=== PATIENT | female | born 1995 | race African-American/Black ===

== ENCOUNTER 2016-05-15 14:19 | Outpatient (CLI) | payer MEDICAID ==
[2016-05-15] MEDS ORDERED: LANSOPRAZOLE 15 MG TAB.RAP.DR PO ONE ×2 (15:03→15:15)
[2016-05-15] MEDS ORDERED: LANSOPRAZOLE 30 MG TAB.RAP.DR ONE (15:06)
--- NOTE | 2016-05-15 16:00 | L&D Flow Sheet ---
LD Flowsheet Datetime Report Generated by CPN: 05/15/2016 16:00 Datetime: 05/15/2016 15:44 I/O Interventions: Up to BR (Jaqueline Fredrick, RN) Datetime: 05/15/2016 15:41 Vital Signs NBP Sys/Tresa/Mean (mmHg): 98 (QS system process) : 53 (QS system process) : 71 (QS system process) Pulse: 85 (QS system process) Datetime: 05/15/2016 15:32 Patient Position/Activity: Left Extreme; Low Fowlers (Jaqueline Fredrick, RN) Datetime: 05/15/2016 15:30 Uterine Activity Monitor Mode: External; Palpation (Jaqueline Fredrick, RN) Frequency (min): x2 (Jaqueline Fredrick, RN) Quality: Mild (Jaqueline Fredrick, RN) Duration (sec): 40 (Jaqueline Fredrick, RN) Duration Criteria: Less than Two 120 Second Contractions (Jaqueline Fredrick, RN) Pattern: Normal: <= 5 Contractions in 10 Minutes (Jaqueline Fredrick, RN) Resting Tone (Palpate): Relaxed (Jaqueline Fredrick, RN) Contraction Comments: irritability (Jaqueline Fredrick, RN) Assessment A Monitor Mode: External US (Jaqueline Fredrick, RN) FHR Baseline Rate : 135 (Jaqueline Fredrick, RN) Variability: Moderate 6-25 bpm (Jaqueline Fredrick, RN) Accelerations: 10X10 (Jaqueline Fredrick, RN) Decelerations: None (Jaqueline Fredrick, RN) Datetime: 05/15/2016 15:25 Vital Signs NBP Sys/Tresa/Mean (mmHg): 99 (QS system process) : 59 (QS system process) : 74 (QS system process) Pulse: 79 (QS system process) Datetime: 05/15/2016 15:17 Medications Medication Comments: Prevacid 30 mg ODT x1 now per Dr. Neilsen order (Jaqueline Fredrick, RN) Datetime: 05/15/2016 15:16 Communication Communication Comments: Dr. Neilsen at bedside assessing patient (Jaqueline Fredrick, RN) Datetime: 05/15/2016 15:11 Vital Signs NBP Sys/Tresa/Mean (mmHg): 106 (QS system process) : 64 (QS system process) : 80 (QS system process) Pulse: 74 (QS system process) Datetime: 05/15/2016 15:10 Vital Signs NBP Sys/Tresa/Mean (mmHg): 102 (QS system process) : 62 (QS system process) : 75 (QS system process) Pulse: 80 (QS system process) Patient Care IV/Blood Work: IV Started; IV Bolus Started (Jaqueline Fredrick, RN) Datetime: 05/15/2016 15:00 Uterine Activity Monitor Mode: External; Palpation (Jaqueline Alcala, RN) Frequency (min): x1 (Jaqueline Alcala, RN) Quality: Mild (Jaqueline Alcala, RN) Duration (sec): 70 (Jaqueline Alcala, RN) Duration Criteria: Less than Two 120 Second Contractions (Jaqueline Alcala, RN) Pattern: Normal: <= 5 Contractions in 10 Minutes (Jaqueline Alcala, RN) Resting Tone (Palpate): Relaxed (Jaqueline Alcala, RN) Contraction Comments: irritability (Jaqueline Alcala, RN) Assessment A Monitor Mode: External US (Jaqueline Alcala, RN) FHR Baseline Rate : 140 (Jaqueline Alcala, RN) Variability: Moderate 6-25 bpm (Jaqueline Alcala, RN) Accelerations: None (Jaqueline Alcala, RN) Decelerations: None (Jaqueline Alcala, RN) Communication Communication Comments: Orders received from DrRoger Lopes for 1 L LR fluid bolus, CBC, CMP, Amylase, and Lipase, Prevacid 20 mg ODT x1 now (Jaqueline Alcala, RN) Datetime: 05/15/2016 14:55 Vital Signs NBP Sys/Tresa/Mean (mmHg): 97 (QS system process) : 61 (QS system process) : 74 (QS system process) Pulse: 81 (QS system process) Datetime: 05/15/2016 14:51 Vaginal Exam Dilatation (cm): 0.5 (Jaqueline Alcala RN) Effacement (%): 50 (Jaqueline Alcala RN) Exam by: Ayan Paris CNM (Jaqueline Alcala RN) Vaginal Bleeding: None (Jaqueline Alcala RN) Vaginal Exam Comments: ballotable (Jaqueline Alcala RN) Datetime: 05/15/2016 14:49 Communication Communication Comments: A. Emmel, CNM at bedside assessing patient (Jaqueline Fredrick, RN) Datetime: 05/15/2016 14:40 Vital Signs NBP Sys/Tresa/Mean (mmHg): 92 (QS system process) : 62 (QS system process) : 72 (QS system process) Pulse: 90 (QS system process) Datetime: 05/15/2016 14:35 Assessment A Monitor Mode: External US (Jaqueline Alcala, MARA) Pain Pain Scale: 0 (Annotations: patient states pain is 0 out of 5 until ripping sensation occurs, then pain is 3/5) (Jaqueline Alcala RN) Pain Presence: Intermittent (Jaqueline Alcala RN) Pain Type: Sharp (Jaqueline Alcala RN) Pain Location: Abdomen (Jaqueline Alcala RN) Pain Goal: 1 (Jaqueline Alcala RN) Pain Relief Measures: Comfort Measures (Jaqueline Alcala RN) Vaginal Bleeding: None (Jaqueline Alcala RN) Maternal Assessment Level of Consciousness: Fully Conscious (Jaqueline Alcala RN) DTR's/Clonus: DTRs 2+; No Clonus (Jaqueline Alcala RN) Headache: Denies (Jaqueline Alcala RN) Breath Sounds, Left: Clear and Equal (Jaqueline Alcala RN) Breath Sounds, Right: Clear and Equal (Jaqueline Alcala RN) Nausea/Vomiting: Denies (Jaqueline Alcala RN) RUQ Epigastric Pain: Denies (Jaqueline Alcala RN) Oxygen Method: Room Air (Jaqueline Alcala RN) Patient Position/Activity: Left Tilt (Jaqueline Alcala RN) I/O Interventions: Clear Liquids Given (Jaqueline Alcala RN) Teaching Instructional Method: Verbal (Jaqueline Alcala RN) Plan of Care: Plan of Care Discussed (Jaqueline Alcala RN) Unit Routine: [place] to Room; Call Reina; Bed (Jaqueline Alcala RN) Related: Common Discomforts of (Jaqueline Alcala RN)
[2016-05-15 16:20] LABS: APPEARANCE,URINE CLEAR; BILIRUBIN,URINE NEGATIVE (NEGATIVE); GLUCOSE, URINE NEGATIVE (NEGATIVE); KETONES,URINE NEGATIVE (NEGATIVE); LEUKOCYTE ESTERASE,URINE SMALL (NEGATIVE); NITRITE,URINE NEGATIVE (NEGATIVE); PROTEIN,URINE NEGATIVE (NEGATIVE); URINE SPECIFIC GRAVITY 1.005; UROBILINOGEN,URINE NEGATIVE mg/dL (<2.0)
[2016-05-15 16:42] LABS: URINE BARBITURATES SCREEN NEGATIVE; URINE METHADONE SCREEN NEGATIVE; URINE PHENCYCLIDINE SCREEN NEGATIVE
[2016-05-15 16:49] LABS: ABSOLUTE BASOPHILS # (AUTO) 0.1 10^3/uL (0.0-0.2); ABSOLUTE EOSINOPHILS # (AUTO) 0.2 10^3/uL (0.0-0.6); ABSOLUTE LYMPHOCYTES (AUTO) 1.8 10^3/uL (0.5-4.7); ABSOLUTE MONOCYTES (AUTO) 0.7 10^3/uL (0.1-1.4); ABSOLUTE NEUT (AUTO) 10.2 10^3/uL (1.7-8.2); BASOPHILS % (AUTO) 0.4 % (0-2); EOSINOPHILS % (AUTO) 1.4 % (0-6); HEMATOCRIT 32.4 % (36.0-47.0); HEMOGLOBIN 10.7 g/dL (12.0-15.5); HGB HCT DIFFERENCE -0.3; LYMPHOCYTES % (AUTO) 13.6 % (13-45); MEAN CORPUSCULAR HEMOGLOBIN 29.2 pg (27.0-33.4); MEAN CORPUSCULAR VOLUME 89 fl (80-97); MONOCYTES % (AUTO) 5.7 % (3-13); RED BLOOD COUNT 3.66 10^6/uL (3.72-5.28); RED CELL DISTRIBUTION WIDTH 14.6 % (11.5-14.0); SEGMENTED NEUTROPHILS % (AUTO) 78.9 % (42-78)
--- NOTE | 2016-05-15 17:14 | L&D Progress Notes ---
PROGRESS NOTES Datetime Report Generated by CPN: 05/15/2016 17:14 PROGRESS NOTE Comment: 20 yo presents with left sided abdominal pain EDC 06/07/16 NKDA Phx: unremarkable Psx: previous c/section d/t distress cervix: ft/50/ ballotable ( soft0 no suprapubic tenderness CBC with diff, CMP, lipase and amylase 1 liter of LR bolus cat 1/ +accelerations Prevacid 30 mg odt reviewed with Dr. Lopes SIGNATURE SIGNATURE: [id number] Assignment: Indiana Lopes MD Signature: with User ID: [email or web address] : with User ID: [email or web address]
--- NOTE | 2016-05-15 17:17 | L&D Progress Notes ---
PROGRESS NOTES Datetime Report Generated by CPN: 05/15/2016 17:17 PROGRESS NOTE Vital Signs : Reviewed; Within Normal Limits Comment: denies nausea/ vomiting reports pain x several weeks with worsening pain today now, intermittent FETUS A Monitoring: External US Decelerations: None FETUS C SIGNATURE: [id number] Assignment: Indiana Lopes MD Signature: with User ID: [email or web address] : with User ID: [email or web address]
[2016-05-15 17:19] LABS: ALANINE AMINOTRANSFERASE 22 U/L (9-52); ALBUMIN 2.8 g/dL (3.5-5.0); ALKALINE PHOSPHATASE 129 U/L (38-126); AMYLASE 63 U/L (30-110); ANION GAP 9 (5-19); ASPARTATE AMINO TRANSFERASE 16 U/L (14-36); BILIRUBIN,TOTAL 0.2 mg/dL (0.2-1.3); BLOOD UREA NITROGEN 11 mg/dL (7-20); CALCIUM 8.7 mg/dL (8.4-10.2); CARBON DIOXIDE 23 mmol/L (22-30); CHLORIDE 106 mmol/L (98-107); GLUCOSE 77 mg/dL (75-110); POTASSIUM 3.8 mmol/L (3.6-5.0); SODIUM 138.3 mmol/L (137-145); TOTAL PROTEIN 5.6 g/dL (6.3-8.2)
--- NOTE | 2016-05-17 11:02 | Non Stress Test Report ---
Non Stress Test Datetime Report Generated by CPN: 05/17/2016 11:01 DEMOGRAPHIC EGA NST: 36.5 INDICATION Indication for Study: Ordered by Provider Indication for Study: Ordered by Provider MONITORING Monitor Explained: Monitor Explained; Test Explained; Patient Verbalized Understanding Time on Monitor: 05/15/2016 14:33 Time off Monitor: 05/15/2016 17:26 NST Duration: 173 NST INTERVENTIONS NST Interventions: PO Hydration; Reposition Patient NST Interventions: PO Hydration; Reposition Patient Physician Notified NST: ARoger Cecileel, CNM BABY A: [id number] BABY A Movement : Present Contraction Frequency : irregular FHR Baseline : 130 Accelerations : 15X15 Decelerations : None Variability : Moderate 6-25bpm NST Review: Meets Criteria for Reactive NST NST Review and Verified By : Uma Nieto rN NST Results: Reactive NST REPORT Report Trigger: Send Report
--- NOTE | 2016-05-21 16:07 | L&D General Admission ---
General Admit Datetime Report Generated by CPN: 05/21/2016 16:07 Patient Age: 20 (03/22/2016 18:00:QS system process) EDC: 06/07/2016 00:00 (03/22/2016 18:05:JEREMY Mercer) : 2 (03/22/2016 18:05:JEREMY Mercer) Para: 1 (04/09/2016 13:00:JEREMY Ortiz) Para: 1 (03/22/2016 20:21:Angela Jacobs RN) Para: 1 (03/22/2016 18:05:JEREMY Mercer) Term: 1 (03/22/2016 18:05:JEREMY Mercer) : 0 (03/22/2016 18:05:JEREMY Mercer) Spontaneous Abortions: 0 (03/22/2016 18:05:JEREMY Mercer) Induced Abortions: 0 (03/22/2016 18:05:JEREMY Mercer) Livin (03/22/2016 18:05:JEREMY Mercer) Cesareans: 1 (03/22/2016 18:05:JEREMY Mercer) VBACs: 0 (03/22/2016 18:05:JEREMY Mercer) Ectopic: 0 (03/22/2016 18:05:JEREMY Mercer) Multiple Births: 0 (03/22/2016 18:05:JEREMY Mercer) Baby, Number in Womb: 1 (05/15/2016 17:43:Jaqueline Alcala RN) Baby, Number in Womb: 1 (04/09/2016 13:00:JEREMY Ortiz) Baby, Number in Womb: 1 (03/22/2016 20:21:Angela Jacobs RN) Baby, Number in Womb: 1 (03/22/2016 18:05:JEREMY Mercer) Primary State'S Attorney: [facility] (03/22/2016 18:05:JEREMY Mercer) Adequate Care: Yes (03/22/2016 18:05:JEREMY Rachel) Medication Allergy: No (03/22/2016 18:05:JEREMY Rachel) Medication Allergies: No Known Allergies (05/15/2016) (05/15/2016 17:39:QS system process) Medication Allergies: No Known Allergies (04/19/2016) (05/15/2016 14:20:QS system process) Medication Allergies: No Known Allergies (03/22/2016) (03/22/2016 18:52:QS system process) Latex Allergy: No Latex Allergies (03/22/2016 18:05:Jaqueline Alcala RN) Food Allergies: n/a (03/22/2016 18:05:Jaqueline Alcala RN) Environmental Allergies: n/a (03/22/2016 18:05:Jaqueline Alcala RN) Primary Language: Comoran (03/22/2016 18:05:JEREMY Rachel) Medical Tx Preferred Language: Comoran (03/22/2016 18:05:Angela Jacobs RN) Communication Barrier(s): None (03/22/2016 18:05:Angela Jacobs RN) Address: [address] [place] [id number] (03/22/2016 18:00:QS system process) Zipcode: [id number] (03/22/2016 18:00:QS system process) Home (03/22/2016 18:00:QS system process) Work (05/15/2016 14:20:QS system process) SSN: [id number] (03/22/2016 18:00:QS system process) Next of Kin Name: FELICIANO FERNANDEZ (03/22/2016 18:00:QS system process) Next of Kin (03/22/2016 18:00:QS system process) Next of Kin Relationship: OR (03/22/2016 18:00:QS system process) Date of : 1995 (03/22/2016 18:00:QS system process) Marital Status: Legally (03/22/2016 18:00:QS system process) Sex: Female (03/22/2016 18:00:QS system process) Race: (03/22/2016 18:00:QS system process) Ethnicity: Non- or (03/22/2016 18:00:QS system process) Catholic: Jain (03/22/2016 18:00:QS system process) Alcohol: No (03/22/2016 18:05:JEREMY Rachel) Cigarettes: Never Smoker. [id number] (03/22/2016 18:05:JEREMY Rahcel) Marijuana: No (03/22/2016 18:05:JEREMY Rachel) Cocaine: No (03/22/2016 18:05:JEREMY Rachel) Other Illicit Drugs: No (03/22/2016 18:05:JEREMY Rachel) Pneumococcal Vaccine: No (03/22/2016 18:05:JEREMY Rachel) Tetanus Vaccine: Yes (03/22/2016 18:05:JEREMY Rachel) Tdap Vaccine: Yes (03/22/2016 18:05:JEREMY Rachel) Hepatitis B Vaccine: Yes (03/22/2016 18:05:JEREMY Rachel) Circumcision: N/A (03/22/2016 18:05:Jaqueline Alcala RN) Classes Attended: No (03/22/2016 18:05:Jaqueline Alcala RN) Tubal Ligation: No (03/22/2016 18:05:Jaqueline Alcala RN) Tubal Authorization Signed: N/A (03/22/2016 18:05:Jaqueline Alcala RN) Consent: N/A (03/22/2016 18:05:Jaqueline Alcala RN) Consent Signed: N/A (03/22/2016 18:05:Jaqueline Alcala RN) Pain Management Plans: Spinal (03/22/2016 18:05:Jaqueline Alcala RN) Support Person: Feliciano Fernandez (03/22/2016 18:05:Jaqueline Alcala RN) Support Person Relationship: Significant Other (03/22/2016 18:05:Jaqueline Alcala RN) Cultural/Spritual Practice: No (03/22/2016 18:05:Jaqueline Alcala RN) Spir/Cult Dietary Needs: No (03/22/2016 18:05:Jaqueline Alcala RN) Living Arrangements: Apartment (03/22/2016 18:05:Jaqueline Alcala RN) Adequate Access to:: Electric; Heat; Refrigeration; Plumbing/Running water; Phone; Transportation (03/22/2016 18:05:Jaqueline Alcala RN) WIC Program: No (03/22/2016 18:05:Jaqueline Alcala RN) Currently Using Commun Resources: N/A (03/22/2016 18:05:Jaqueline Alcala RN) Outside Agency/[employer] Developer: N/A (03/22/2016 18:05:Jaqueline Alcala RN) Car Seat for Discharge: No (03/22/2016 18:05:Jaqueline Alcala RN) Adoption Requested: No (03/22/2016 18:05:Jaqueline Alcala RN) Pt Contact w/ Post : N/A (03/22/2016 18:05:Jaqueline Alcala RN) Blood Type: A Positive (03/22/2016 18:05:JEREMY Mercer) Antibody Screen: negative (03/22/2016 18:05:JEREMY Mercer) Rho(G) this : Not Applicable (03/22/2016 18:05:Angela Jacobs RN) Hemoglobin: 10.7 L (05/15/2016 16:38:QS system process) Hematocrit: 32.4 L (05/15/2016 16:38:QS system process) MCV: 89 (05/15/2016 16:38:QS system process) Gonorrhea: Negative (03/22/2016 18:05:JEREMY Mercer) Chlamydia: Negative (03/22/2016 18:05:JEREMY Mercer) RPR/VDRL: Reactive (03/22/2016 18:05:JEREMY Mercer) HIV Results: negative (03/22/2016 18:05:JEREMY Mercer) Hepatitis B: Negative (03/22/2016 18:05:JEREMY Mercer) Rubella: Immune (03/22/2016 18:05:JEREMY Mercer)
--- NOTE | 2016-05-21 16:07 | Antepartum Discharge Summary ---
Antepartum DC Datetime Report Generated by CPN: 05/21/2016 16:06 Diet: Regular (05/15/2016 17:43:Jaqueline Alcala RN) Activity: Normal Activity (05/15/2016 17:43:Jaqueline Alcala RN) Instructions Given To: patient and significant other (05/15/2016 17:43:Jaqueline Alcala RN) Instructions Understood: Patient Verbalized Understanding; Support Person Verbalized Understanding (05/15/2016 17:43:Jaqueline Alcala RN) Referrals: None (05/15/2016 17:43:Jaqueline Alcala RN) Educational Materials- Other: kick counts care notes reviewed with patient, patient verbalized understanding (05/15/2016 17:43:Jaqueline Alcala RN) Discharged AMA: No (05/15/2016 17:43:Jaqueline Alcala RN) Discharge Date/Time: 05/15/2016 17:40 (05/15/2016 17:43:Jaqueline Alcala RN) Discharged To: Home (05/15/2016 17:43:Jaqueline Alcala RN) Discharge Provider Name: Ayan Paris CNM (05/15/2016 17:43:Jaqueline Alcala RN) Accompanied By: significant other (05/15/2016 17:43:Jaqueline Alcala RN) Discharge Method: Ambulatory (05/15/2016 17:43:Jaqueline Alcala RN) Condition: Stable (05/15/2016 17:43:Jaqueline Alcaal RN) Follow Up With: [facility] (05/15/2016 17:43:Jaqueline Alcala RN) Follow Up On: As Scheduled (05/15/2016 17:43:Jaqueline Alcala RN) Follow Up Phone Number: [facility] - (05/15/2016 17:43:Jaqueline Alcala RN) Contractions: Contractions or cramps become more frequent than 8 in one hour or 4 in 20 minutes; Regular painful contractions every 5 minutes or less for one hour. Time your contractions from the beginning of one to the beginning of the next (05/15/2016 17:43:Jaqueline Alcala RN) Pressure: Pressure in your vagina or lower abdomen that may feel like the baby is pushing down (05/15/2016 17:43:Jaqueline Alcala RN) Period Like Cramps: Period-like cramps or low dull backache that may come and go (05/15/2016 17:43:Jaqueline Alcala RN) Cramps/Diarrhea: Abdominal cramps that may be accompanied by diarrhea (05/15/2016 17:43:Jaqueline Alcala RN) Gush of Fluid/Blood: Gush of fluid or blood from your vagina (it is normal to have spotting after vaginal exam or intercourse) (05/15/2016 17:43:Jaqueline Alcala RN) Vaginal Discharge: Change in the type or amount of vaginal discharge (05/15/2016 17:43:Jaqueline Alcala RN) Decreased Movement: Your baby is not moving as much as usual- 4 movements in 1 hour after drinking and resting on side (05/15/2016 17:43:Jaqueline Alcala RN) Temperature: Temperature greater than 100.0(F) orally (05/15/2016 17:43:Jaqueline Alcala RN) Hypertension Signs/Symptoms: Severe headache which is not relieved 30 minutes after taking Tylenol(Acetaminophen); Blurry vision or spots before your eyes; Severe heartburn or pain on the upper right side of your abdomen that is not relieved by an antacid; Increased swelling in your face, hands or feet (05/15/2016 17:43:Jaqueline Alcala RN) Urinary Output: Decreased urinary output or dark colored urine (05/15/2016 17:43:Jaquelnie Alcala RN)
--- NOTE | 2016-05-21 16:07 | L&D Current Admission ---
Current Admit Datetime Report Generated by [facility]: 05/21/2016 16:07 Chief Complaint: patient states she had a ripping sensation in LUQ of abdomen starting at _12 this afternoon (05/15/2016 14:35:Jaqueline Alcala RN)
--- NOTE | 2016-05-21 16:08 | L&D Discharge Summary ---
OB Discharge Summary Datetime Report Generated by CPN: 05/21/2016 16:08 DISCHARGE DIAGNOSIS Diagnosis/Symptoms: Decreased Movement; Reassuring Surveillance - Annotate Details Diagnoses/Symptoms Other: IUP @ 37.0 weeks, BPP 8/10 (Annotations: Data stored by [facility] on behalf of user) Treatment/Procedures Other: Keflex 1000 mg given po Gestation: 37.0 Number of Babies in Womb: 1 Parity: 1 DIET/ACTIVITY/RESTRICTIONS Diet: Regular Activity: Normal Activity TEACHING/INSTRUCTIONS/REFERRALS Instructions Given To: patient and significant other Instructions Understood: Patient Verbalized Understanding; Support Person Verbalized Understanding Referrals: None Educational Materials- Other: kick counts care notes reviewed with patient, patient verbalized understanding DISCHARGE INFORMATION Discharged AMA: No Discharge Date/Time: 05/15/2016 17:40 Discharged To: Home Discharge Provider Name: A. Emmel, CNM Accompanied By: significant other Discharge Method: Ambulatory Condition: Stable FOLLOW UP INFORMATION Follow Up With: [facility] Follow Up On: As Scheduled Follow Up Phone Number: [facility] - GENERAL INSTR-CALL PROVIDER IF: Contractions: Contractions or cramps become more frequent than 8 in one hour or 4 in 20 minutes; Regular painful contractions every 5 minutes or less for one hour. Time your contractions from the beginning of one to the beginning of the next Pressure: Pressure in your vagina or lower abdomen that may feel like the baby is pushing down Period Like Cramps: Period-like cramps or low dull backache that may come and go Cramps/Diarrhea: Abdominal cramps that may be accompanied by diarrhea Gush of Fluid/Blood: Gush of fluid or blood from your vagina (it is normal to have spotting after vaginal exam or intercourse) Vaginal Discharge: Change in the type or amount of vaginal discharge Decreased Movement: Your baby is not moving as much as usual- 4 movements in 1 hour after drinking and resting on side Temperature: Temperature greater than 100.0(F) orally
== END 2016-05-15 17:41 | disposition home or self-care (01) ==
LOC: LC 14:19
PROVIDERS: ATTEND Obstetrics & Gynecology
PROC: 4A1HXCZ Monitoring of Products of Conception, Cardiac Rate, External Approach (ICD-10-PCS; principal; 2016-05-15)
DX: Z34.93 Encounter for supervision of normal pregnancy, unspecified, third trimester (principal); Z3A.36 36 weeks gestation of pregnancy
CPT/HCPCS: 36415; 59025; 80053; 80307; 81005; 82150; 83690; 85025

== ENCOUNTER 2016-05-17 10:59 | Outpatient (CLI) | payer MEDICAID ==
--- NOTE | 2016-05-17 12:01 | L&D Flow Sheet ---
LD Flowsheet Datetime Report Generated by CPN: 05/17/2016 12:00 Datetime: 05/17/2016 11:12 I/O Interventions: Popsicle (Nola Heladio, RNC) Datetime: 05/17/2016 11:11 Patient Care Patient Position/Activity: Right Lateral (Nola Heladio, RNC) Datetime: 05/17/2016 11:10 Patient Care Patient Position/Activity: Left Lateral (Nola Heladio, RNC) Datetime: 05/17/2016 11:07 Vital Signs NBP Sys/Tresa/Mean (mmHg): 96 (QS system process) : 51 (QS system process) : 68 (QS system process) Pulse: 87 (QS system process) Respirations: 17 (Nola Leija RNC) Temperature (F): 98.0 (JEREMY Rachel) Temperature (C): 36.7 (QS system process) Datetime: 05/17/2016 11:01 Patient Care Patient Position/Activity: Right Lateral (JEREMY Rachel)
--- NOTE | 2016-05-21 16:07 | L&D Flow Sheet ---
LD Flowsheet Datetime Report Generated by CPN: 05/21/2016 16:07 Datetime: 05/15/2016 17:30 Communication Comments: A. Emmel at bedside reviewing labs with patient. Order received to discharge patient home. Patient instructed to rest at home and keep appointment at [facility] (Jaqueline Fredrick, RN) Datetime: 05/15/2016 17:26 Communication Comments: monitors removed for patient discharge (Jaqueline Fredrick, RN) Datetime: 05/15/2016 17:25 NBP Sys/Tresa/Mean (mmHg): 95 (QS system process) : 54 (QS system process) : 66 (QS system process) Pulse: 88 (QS system process) Datetime: 05/15/2016 17:07 Communication Comments: Order received from A. Emmel, [facility] to d/c heart rate monitor (Jaqueline Alcala, RN) Datetime: 05/15/2016 16:55 NBP Sys/Tresa/Mean (mmHg): 83 (QS system process) : 52 (QS system process) : 63 (QS system process) Pulse: 84 (QS system process) Datetime: 05/15/2016 16:45 Monitor Mode: External; Palpation (Jaqueline Alcala, RN) Frequency (min): none (Jaqueline Alcala, RN) Resting Tone (Palpate): Relaxed (Jaqueline Alcala, RN) Monitor Mode: External US (Jaqueline Alcala, RN) FHR Baseline Rate : 140 (Jaqueline Alcala, RN) FHR Baseline Changes: No Baseline Change (Jaqueline Fredrick, RN) Variability: Moderate 6-25 bpm (Jaqueline Fredrick, RN) Accelerations: 15X15 (Jaqueline Fredrick, RN) Decelerations: None (Jaqueline Fredrick, RN) Datetime: 05/15/2016 16:40 NBP Sys/Tresa/Mean (mmHg): 89 (QS system process) : 53 (QS system process) : 66 (QS system process) Pulse: 93 (QS system process) Datetime: 05/15/2016 16:25 NBP Sys/Tresa/Mean (mmHg): 89 (QS system process) : 53 (QS system process) : 66 (QS system process) Pulse: 87 (QS system process) Datetime: 05/15/2016 16:24 I/O Interventions: Popsicle (Jaqueline Alcala RN) Datetime: 05/15/2016 16:15 Monitor Mode: External; Palpation (Jaqueline Alcala RN) Frequency (min): none (Jaqueline Alcala RN) Resting Tone (Palpate): Relaxed (Jaqueline Alcala RN) Monitor Mode: External US (Jaqueline Alcala RN) FHR Baseline Rate : 130 (Jaqueline Fredrick, RN) FHR Baseline Changes: No Baseline Change (Jaqueline Alcala, RN) Variability: Moderate 6-25 bpm (Jaqueline Alcala, RN) Accelerations: None (Jaqueline Alcala, RN) Decelerations: None (Jaqueline Alcala RN) Datetime: 05/15/2016 16:10 NBP Sys/Tresa/Mean (mmHg): 93 (QS system process) : 53 (QS system process) : 68 (QS system process) Pulse: 76 (QS system process) Datetime: 05/15/2016 16:02 NBP Sys/Tresa/Mean (mmHg): 90 (QS system process) : 50 (QS system process) : 63 (QS system process) Pulse: 76 (QS system process) Datetime: 05/15/2016 16:00 Comments: patient off monitor in bathroom (Jaqueline Fredrick, RN) Datetime: 05/15/2016 15:45 Monitor Mode: External; Palpation (Jaqueline Fredrick, RN) Frequency (min): irritability (Jaqueline Fredrick, RN) Quality: Mild (Jaqueline Fredrick, RN) Duration Criteria: Less than Two 120 Second Contractions (Jaqueline Fredrick, RN) Pattern: Normal: <= 5 Contractions in 10 Minutes (Jaqueline Fredrick, RN) Resting Tone (Palpate): Relaxed (Jaqueline Fredrick, RN) Monitor Mode: External US (Jaqueline Fredrick, RN) FHR Baseline Rate : 130 (Jaqueline Fredrick, RN) Variability: Moderate 6-25 bpm (Jaqueline Fredrick, RN) Accelerations: 15X15 (Jaqueline Fredrick, RN) Decelerations: None (Jaqueline Fredrick, RN) Datetime: 05/15/2016 15:44 I/O Interventions: Up to BR (Jaqueline Fredrick, RN) Datetime: 05/15/2016 15:41 NBP Sys/Tresa/Mean (mmHg): 98 (QS system process) : 53 (QS system process) : 71 (QS system process) Pulse: 85 (QS system process) Datetime: 05/15/2016 15:32 Patient Position/Activity: Left Extreme; Low Fowlers (Jaqueline Fredrick, RN) Datetime: 05/15/2016 15:30 Monitor Mode: External; Palpation (Jaqueline Alcala, RN) Frequency (min): x2 (Jaqueline Alcala, RN) Quality: Mild (Jaqueline Alcala, RN) Duration (sec): 40 (Jaqueline Alcala, RN) Duration Criteria: Less than Two 120 Second Contractions (Jaqueline Alcala, RN) Pattern: Normal: <= 5 Contractions in 10 Minutes (Jaqueline Alcala, RN) Resting Tone (Palpate): Relaxed (Jaqueline Alcala, RN) Contraction Comments: irritability (Jaqueline Alcala, RN) Monitor Mode: External US (Jaqueline Alcala, RN) FHR Baseline Rate : 135 (Jaqueline Alcala, RN) Variability: Moderate 6-25 bpm (Jaqueline Alcala, RN) Accelerations: 10X10 (Jaqueline Alcala, RN) Decelerations: None (Jaqueline Alcala, RN) Datetime: 05/15/2016 15:25 NBP Sys/Tresa/Mean (mmHg): 99 (QS system process) : 59 (QS system process) : 74 (QS system process) Pulse: 79 (QS system process) Datetime: 05/15/2016 15:17 Medication Comments: Prevacid 30 mg ODT x1 now per Dr. Neilsen order (Jaqueline Alcala, RN) Datetime: 05/15/2016 15:16 Communication Comments: Dr. Neilsen at bedside assessing patient (Jaqueline Alcala, RN) Datetime: 05/15/2016 15:11 NBP Sys/Tresa/Mean (mmHg): 106 (QS system process) : 64 (QS system process) : 80 (QS system process) Pulse: 74 (QS system process) Datetime: 05/15/2016 15:10 NBP Sys/Tresa/Mean (mmHg): 102 (QS system process) : 62 (QS system process) : 75 (QS system process) Pulse: 80 (QS system process) IV/Blood Work: IV Started; IV Bolus Started (Jaqueline Alcala RN) Datetime: 05/15/2016 15:00 Monitor Mode: External; Palpation (Jaqueline Alcala RN) Frequency (min): x1 (Jaqueline Alcala RN) Quality: Mild (Jaqueline Alcala RN) Duration (sec): 70 (Jaqueline Alcala RN) Duration Criteria: Less than Two 120 Second Contractions (Jaqueline Alcala RN) Pattern: Normal: <= 5 Contractions in 10 Minutes (Jaqueline Alcala RN) Resting Tone (Palpate): Relaxed (Jaqueline Alcala RN) Contraction Comments: irritability (Jaqueline Alcala RN) Monitor Mode: External US (Jaqueline Alcala RN) FHR Baseline Rate : 140 (Jaqueline Alcala RN) Variability: Moderate 6-25 bpm (Jaqueline Alcala RN) Accelerations: None (Jaqueline Alcala RN) Decelerations: None (Jaqueline Alcala RN) Communication Comments: Orders received from Dr. Lopes for 1 L LR fluid bolus, CBC, CMP, Amylase, and Lipase, Prevacid 20 mg ODT x1 now (Jaqueline Alcala RN) Datetime: 05/15/2016 14:55 NBP Sys/Tresa/Mean (mmHg): 97 (QS system process) : 61 (QS system process) : 74 (QS system process) Pulse: 81 (QS system process) Datetime: 05/15/2016 14:51 Dilatation (cm): 0.5 (Jaqueline Alcala RN) Effacement (%): 50 (Jaqueline Alcala RN) Exam by: Ayan Paris CNM (Jaqueline Alcala RN) Vaginal Bleeding: None (Jaqueline Alcala RN) Vaginal Exam Comments: ballotable (Jaqueline Alcala RN) Datetime: 05/15/2016 14:49 Communication Comments: ARoger Paris CNM at bedside assessing patient (Jaqueline Alcala RN) Datetime: 05/15/2016 14:40 NBP Sys/Tresa/Mean (mmHg): 92 (QS system process) : 62 (QS system process) : 72 (QS system process) Pulse: 90 (QS system process) Datetime: 05/15/2016 14:35 Monitor Mode: External US (Jaqueline Alcala RN) Pain Scale: 0 (Annotations: patient states pain is 0 out of 5 until ripping sensation occurs, then pain is 3/5) (Jaqueline Alcala RN) Pain Presence: Intermittent (Jaqueline Alcala RN) Pain Type: Sharp (Jaqueline Alcala RN) Pain Location: Abdomen (Jaqueline Alcala RN) Pain Goal: 1 (Jaqueline Alcala RN) Pain Relief Measures: Comfort Measures (Jaqueline Alcala RN) Vaginal Bleeding: None (Jaqueline Alcala RN) Level of Consciousness: Fully Conscious (Jaqueline Alcala RN) DTR's/Clonus: DTRs 2+; No Clonus (Jaqueline Alcala RN) Headache: Denies (Jaqueline Alcala RN) Breath Sounds, Left: Clear and Equal (Jaqueline Alcala RN) Breath Sounds, Right: Clear and Equal (Jaqueline Alcala RN) Nausea/Vomiting: Denies (Jaqueline Alcala RN) RUQ Epigastric Pain: Denies (Jaqueline Alcala, RN) Oxygen Method: Room Air (Jaqueline Alcala, RN) Patient Position/Activity: Left Tilt (Jaqueline Alcala, RN) I/O Interventions: Clear Liquids Given (Jaqueline Alcala, MARA) Instructional Method: Verbal (Jaqueline Alcala RN) Plan of Care: Plan of Care Discussed (Jaqueline Alcala, RN) Unit Routine: [place] to Room; Call Reina; Bed (Jaqueline Alcala, RN) Related: Common Discomforts of (Jaqueline Alcala, MARA)
--- NOTE | 2016-05-22 09:57 | L&D General Admission ---
General Admit Datetime Report Generated by CPN: 05/22/2016 09:56 INFORMATION Patient Age: 20 (03/22/2016 18:00:QS system process) EDC: 06/07/2016 00:00 (03/22/2016 18:05:JEREMY Mercer) : 2 (03/22/2016 18:05:JEREMY Mercer) Para: 1 (04/09/2016 13:00:JEREMY Ortiz) Para: 1 (03/22/2016 20:21:Angela Jacobs RN) Para: 1 (03/22/2016 18:05:JEREMY Mercer) Term: 1 (03/22/2016 18:05:JEREMY Mercer) : 0 (03/22/2016 18:05:JEREMY Mercer) Spontaneous Abortions: 0 (03/22/2016 18:05:JEREMY Mercer) Induced Abortions: 0 (03/22/2016 18:05:JEREMY Mercer) Livin (03/22/2016 18:05:JEREMY Mercer) Cesareans: 1 (03/22/2016 18:05:JEREMY Mercer) VBACs: 0 (03/22/2016 18:05:JEREMY Mercer) Ectopic: 0 (03/22/2016 18:05:JEREMY Mercer) Multiple Births: 0 (03/22/2016 18:05:JEREMY Mercer) Baby, Number in Womb: 1 (05/15/2016 17:43:Jaqueline Alcala RN) Baby, Number in Womb: 1 (04/09/2016 13:00:JEREMY Ortiz) Baby, Number in Womb: 1 (03/22/2016 20:21:Angela Jacobs RN) Baby, Number in Womb: 1 (03/22/2016 18:05:JEREMY Mercer) CARE Primary Sports Medicine Physician: [facility] (03/22/2016 18:05:JEREMY Mercer) Adequate Care: Yes (03/22/2016 18:05:JEREMY Rachel) Height (in): 62 (05/17/2016 13:08:QS system process) Height (in): 62 (05/17/2016 11:26:QS system process) Height (in): 62 (05/17/2016 11:19:QS system process) Height (in): 62 (05/17/2016 11:18:QS system process) Height (in): 62 (05/15/2016 17:39:QS system process) Height (in): 62 (04/09/2016 13:07:QS system process) Height (in): 62 (03/22/2016 18:53:QS system process) ALLERGIES Medication Allergy: No (03/22/2016 18:05:JEREMY Rachel) Medication Allergies: No Known Allergies (05/17/2016) (05/17/2016 11:19:QS system process) Medication Allergies: No Known Allergies (05/15/2016) (05/15/2016 17:39:QS system process) Medication Allergies: No Known Allergies (04/19/2016) (05/15/2016 14:20:QS system process) Medication Allergies: No Known Allergies (03/22/2016) (03/22/2016 18:52:QS system process) Latex Allergy: No Latex Allergies (03/22/2016 18:05:Jaqueline Alcala RN) Food Allergies: n/a (03/22/2016 18:05:Jaqueline Alcala RN) Environmental Allergies: n/a (03/22/2016 18:05:Jaqueline Alcala RN) COMMUNICATION Primary Language: Slovenian (03/22/2016 18:05:Nola Heladio, RNC) Medical Tx Preferred Language: Slovenian (03/22/2016 18:05:Angela Jacobs RN) Communication Barrier(s): None (03/22/2016 18:05:Angela Jacobs RN) DEMOGRAPHICS Address: [address] [place] [id number] (03/22/2016 18:00:QS system process) Zipcode: [address] (03/22/2016 18:00:QS system process) Home (03/22/2016 18:00:QS system process) Work (05/17/2016 11:00:QS system process) Work (05/15/2016 14:20:QS system process) SSN: [id number] (03/22/2016 18:00:QS system process) Next of Kin Name: FELICIANO FERNANDEZ (03/22/2016 18:00:QS system process) Next of Kin (03/22/2016 18:00:QS system process) Next of Kin Relationship: OR (03/22/2016 18:00:QS system process) Date of : 1995 (03/22/2016 18:00:QS system process) Marital Status: Legally (03/22/2016 18:00:QS system process) Sex: Female (03/22/2016 18:00:QS system process) Race: (03/22/2016 18:00:QS system process) Ethnicity: Non- or (03/22/2016 18:00:QS system process) Latter-Day: Sikh (03/22/2016 18:00:QS system process) DRUG AND ALCOHOL USE Alcohol: No (03/22/2016 18:05:JEREMY Rachel) Cigarettes: Never Smoker. [id number] (03/22/2016 18:05:JEREMY Rachel) Marijuana: No (03/22/2016 18:05:JEREMY Rachel) Cocaine: No (03/22/2016 18:05:JEREMY Rachel) Other Illicit Drugs: No (03/22/2016 18:05:JEREMY Rachel) VACCINE HISTORY Pneumococcal Vaccine: No (03/22/2016 18:05:JEREMY Rachel) Tetanus Vaccine: Yes (03/22/2016 18:05:JEREMY Rachel) Tdap Vaccine: Yes (03/22/2016 18:05:JEREMY Rachel) Hepatitis B Vaccine: Yes (03/22/2016 18:05:JEREMY Rachel) Circumcision: N/A (03/22/2016 18:05:Jaqueline Alcala RN) Classes Attended: No (03/22/2016 18:05:Jaqueline Alcala RN) Tubal Ligation: No (03/22/2016 18:05:Jaqueline Alcala RN) Tubal Authorization Signed: N/A (03/22/2016 18:05:Jaqueline Alcala RN) Consent: N/A (03/22/2016 18:05:Jaqueline Alcala RN) Consent Signed: N/A (03/22/2016 18:05:Jaqueline Alcala RN) Pain Management Plans: Spinal (03/22/2016 18:05:Jaqueline Alcala RN) Plans for Labor and Delivery: None (03/22/2016 18:05:JEREMY Mercer) Support Person: Feliciano Fernandez (03/22/2016 18:05:Jaqueline Alcala RN) Support Person Relationship: Significant Other (03/22/2016 18:05:Jaqueline Alcala RN) Cultural/Spritual Practice: No (03/22/2016 18:05:Jaqueline Alcala RN) Spir/Cult Dietary Needs: No (03/22/2016 18:05:Jaqueline Alcala RN) LIVING SITUATION/DISCHARGE PLAN Living Arrangements: Apartment (03/22/2016 18:05:Jaqueline Alcala RN) Adequate Access to:: Electric; Heat; Refrigeration; Plumbing/Running water; Phone; Transportation (03/22/2016 18:05:Jaqueline Alcala RN) WIC Program: No (03/22/2016 18:05:Jaqueline Alcala RN) Currently Using Commun Resources: N/A (03/22/2016 18:05:Jaqueline Alcala RN) Outside Agency/German Teacher: N/A (03/22/2016 18:05:Jaqueline Alcala RN) Car Seat for Discharge: No (03/22/2016 18:05:Jaqueline Alcala RN) Adoption Requested: No (03/22/2016 18:05:Jaqueline Alcala RN) Pt Contact w/ Post : N/A (03/22/2016 18:05:Jaqueline Alcala RN) LABS Blood Type: A Positive (03/22/2016 18:05:JEREMY Mercer) Antibody Screen: negative (03/22/2016 18:05:JEREMY Mercer) Rho(G) this : Not Applicable (03/22/2016 18:05:Angela Jacobs RN) Hemoglobin: 10.7 L (05/15/2016 16:38:QS system process) Hematocrit: 32.4 L (05/15/2016 16:38:QS system process) MCV: 89 (05/15/2016 16:38:QS system process) Gonorrhea: Negative (03/22/2016 18:05:JEREMY Mercer) Chlamydia: Negative (03/22/2016 18:05:JEREMY Mercer) RPR/VDRL: Reactive (03/22/2016 18:05:JEREMY Mercer) HIV Results: negative (03/22/2016 18:05:JEREMY Mercer) Hepatitis B: Negative (03/22/2016 18:05:JEREMY Mercer) Rubella: Immune (03/22/2016 18:05:JEREMY Mercer)
--- NOTE | 2016-05-22 09:57 | Non Stress Test Report ---
Non Stress Test Datetime Report Generated by CPN: 05/22/2016 09:57 INDICATION Indication for Study: Ordered by Provider MONITORING Monitor Explained: Monitor Explained; Test Explained; Patient Verbalized Understanding NST INTERVENTIONS NST Interventions: PO Hydration; Reposition Patient
--- NOTE | 2016-05-22 09:57 | L&D Flow Sheet ---
LD Flowsheet Datetime Report Generated by CPN: 05/22/2016 09:57 Datetime: 05/17/2016 14:50 Additional Nursing Comments: Pt physically left L_D ambulatory in stable condition with at side. (Nola Leija, RNC) Datetime: 05/17/2016 14:45 Additional Nursing Comments: Report to Dr. Andrews re: BPP 8/8, orders for d/c home received. (Nola Leija RNC) Datetime: 05/17/2016 14:30 Additional Nursing Comments: Pt back to L_D from radiology (Nolamelvin Leija, RNC) Datetime: 05/17/2016 13:45 Additional Nursing Comments: Pt transported to U/S for BPP. (Nola Leija, RNC) Datetime: 05/17/2016 13:07 Comments: Monitors removed from abdomen for BPP per Radiology's request to have pt ready for transport. (Nola Leija, RNC) Datetime: 05/17/2016 13:00 Monitor Mode: External; Palpation (Nola Heladio, RNC) Frequency (min): x1 (Nola Heladio, RNC) Quality: Mild (Nola Heladio, RNC) Duration (sec): 50 (Nola Heladio, RNC) Duration Criteria: Less than Two 120 Second Contractions (Nola Heladio, RNC) Pattern: Normal: <= 5 Contractions in 10 Minutes (Nola Heladio, RNC) Resting Tone (Palpate): Relaxed (Nola Ehladio, RNC) Monitor Mode: External US (Nola Heladio, RNC) FHR Baseline Rate : 140 (Nola Heladio, RNC) Variability: Moderate 6-25 bpm (Nola Heladio, RNC) Accelerations: Prolonged (Nola Heladio, RNC) Decelerations: None (Nola Heladio, RNC) Datetime: 05/17/2016 12:30 Monitor Mode: External (Nola Heladio, RNC) Frequency (min): x0 (Nola Heladio, RNC) Quality: Mild (Nola Heladio, RNC) Resting Tone (Palpate): Relaxed (Nola Heladio, RNC) Monitor Mode: External US (Nola Heladio, RNC) FHR Baseline Rate : 140 (Nola Heladio, RNC) Variability: Moderate 6-25 bpm (Nola Heladio, RNC) Accelerations: Prolonged (Nola Heladio, RNC) Decelerations: None (Nola Heladio, RNC) Datetime: 05/17/2016 12:00 Monitor Mode: External; Palpation (Nola Heladio, RNC) Frequency (min): x0 (Nola Heladio, RNC) Resting Tone (Palpate): Relaxed (Nola Heladio, RNC) Monitor Mode: External US (Nola Heladio, RNC) FHR Baseline Rate : 135 (Nola Heladio, RNC) Variability: Moderate 6-25 bpm (Nola Heladio, RNC) Accelerations: None (Nola Heladio, RNC) Decelerations: None (Nola Heladio, RNC) Datetime: 05/17/2016 11:30 Frequency (min): x0 (Nola Heladio, RNC) Quality: Mild (Nola Heladio, RNC) Resting Tone (Palpate): Relaxed (Nola Leija, RNC) Monitor Mode: External US (Nola Leija, RNC) FHR Baseline Rate : 140 (Nola Leija, RNC) Variability: Moderate 6-25 bpm (Nola Leija, RNC) Accelerations: 15X15 (Nola Leija, RNC) Decelerations: None (Nola Leija, RNC) Datetime: 05/17/2016 11:12 I/O Interventions: Popsicle (Nola Heladio, RNC) Datetime: 05/17/2016 11:11 Patient Position/Activity: Right Lateral (Nola Heladio, RNC) Datetime: 05/17/2016 11:10 Patient Position/Activity: Left Lateral (Nola Leija, RNC) Datetime: 05/17/2016 11:07 NBP Sys/Tresa/Mean (mmHg): 96 (QS system process) : 51 (QS system process) : 68 (QS system process) Pulse: 87 (QS system process) Respirations: 17 (Nola Leija, [facility]) Temperature (F): 98.0 (Nola Leija [facility]) Temperature (C): 36.7 (QS system process) Datetime: 05/17/2016 11:01 Patient Position/Activity: Right Lateral (Nola Leija, C)
--- NOTE | 2016-05-22 09:58 | L&D Discharge Summary ---
OB Discharge Summary Datetime Report Generated by CPN: 05/22/2016 09:58 DISCHARGE DIAGNOSIS Diagnosis/Symptoms: Decreased Movement; Reassuring Surveillance - Annotate Details Diagnoses/Symptoms Other: IUP @ 37.0 weeks, BPP 810 (Annotations: Data stored by [facility] on behalf of user) Treatment/Procedures Other: Keflex 1000 mg given po Gestation: 37.0 Number of Babies in Womb: 1 Parity: 1 DIET/ACTIVITY/RESTRICTIONS Diet: Regular Activity: Normal Activity TEACHING/INSTRUCTIONS/REFERRALS Instructions Given To: patient and significant other Instructions Understood: Patient Verbalized Understanding; Support Person Verbalized Understanding Referrals: None Educational Materials- Other: kick counts care notes reviewed with patient, patient verbalized understanding DISCHARGE INFORMATION Discharged AMA: No Discharge Date/Time: 05/15/2016 17:40 Discharged To: Home Discharge Provider Name: A. Emmel, CNM Accompanied By: significant other Discharge Method: Ambulatory Condition: Stable FOLLOW UP INFORMATION Follow Up With: [facility] Follow Up On: As Scheduled Follow Up Phone Number: [facility] - GENERAL INSTR-CALL PROVIDER IF: Contractions: Contractions or cramps become more frequent than 8 in one hour or 4 in 20 minutes; Regular painful contractions every 5 minutes or less for one hour. Time your contractions from the beginning of one to the beginning of the next Pressure: Pressure in your vagina or lower abdomen that may feel like the baby is pushing down Period Like Cramps: Period-like cramps or low dull backache that may come and go Cramps/Diarrhea: Abdominal cramps that may be accompanied by diarrhea Gush of Fluid/Blood: Gush of fluid or blood from your vagina (it is normal to have spotting after vaginal exam or intercourse) Vaginal Discharge: Change in the type or amount of vaginal discharge Decreased Movement: Your baby is not moving as much as usual- 4 movements in 1 hour after drinking and resting on side Temperature: Temperature greater than 100.0(F) orally
--- NOTE | 2016-05-22 09:58 | L&D Discharge Summary ---
OB Discharge Summary Datetime Report Generated by CPN: 05/22/2016 09:57 DISCHARGE DIAGNOSIS Diagnosis/Symptoms: Decreased Movement; Reassuring Surveillance - Annotate Details Diagnoses/Symptoms Other: IUP @ 37.0 weeks, BPP 810 (Annotations: Data stored by [facility] on behalf of user) Treatment/Procedures Other: Keflex 1000 mg given po Gestation: 37.0 Number of Babies in Womb: 1 Parity: 1 DIET/ACTIVITY/RESTRICTIONS Diet: Regular Activity: Normal Activity TEACHING/INSTRUCTIONS/REFERRALS Instructions Given To: patient and significant other Instructions Understood: Patient Verbalized Understanding; Support Person Verbalized Understanding Referrals: None Educational Materials- Other: kick counts care notes reviewed with patient, patient verbalized understanding DISCHARGE INFORMATION Discharged AMA: No Discharge Date/Time: 05/15/2016 17:40 Discharged To: Home Discharge Provider Name: A. Emmel, CNM Accompanied By: significant other Discharge Method: Ambulatory Condition: Stable FOLLOW UP INFORMATION Follow Up With: [facility] Follow Up On: As Scheduled Follow Up Phone Number: [facility] - GENERAL INSTR-CALL PROVIDER IF: Contractions: Contractions or cramps become more frequent than 8 in one hour or 4 in 20 minutes; Regular painful contractions every 5 minutes or less for one hour. Time your contractions from the beginning of one to the beginning of the next Pressure: Pressure in your vagina or lower abdomen that may feel like the baby is pushing down Period Like Cramps: Period-like cramps or low dull backache that may come and go Cramps/Diarrhea: Abdominal cramps that may be accompanied by diarrhea Gush of Fluid/Blood: Gush of fluid or blood from your vagina (it is normal to have spotting after vaginal exam or intercourse) Vaginal Discharge: Change in the type or amount of vaginal discharge Decreased Movement: Your baby is not moving as much as usual- 4 movements in 1 hour after drinking and resting on side Temperature: Temperature greater than 100.0(F) orally
--- NOTE | 2016-05-22 10:23 | L&D Discharge Summary ---
OB Discharge Summary Datetime Report Generated by CPN: 05/22/2016 10:23 DISCHARGE DIAGNOSIS Diagnosis/Symptoms: Decreased Movement; Reassuring Surveillance - Annotate Details Diagnoses/Symptoms Other: IUP @ 37.0 weeks, BPP 810 (Annotations: Data stored by [facility] on behalf of user) Treatment/Procedures Other: Keflex 1000 mg given po Gestation: 37.0 Number of Babies in Womb: 1 Parity: 1 DIET/ACTIVITY/RESTRICTIONS Diet: Regular Activity: Normal Activity TEACHING/INSTRUCTIONS/REFERRALS Instructions Given To: patient and significant other Instructions Understood: Patient Verbalized Understanding; Support Person Verbalized Understanding Referrals: None Educational Materials- Other: kick counts care notes reviewed with patient, patient verbalized understanding DISCHARGE INFORMATION Discharged AMA: No Discharge Date/Time: 05/15/2016 17:40 Discharged To: Home Discharge Provider Name: A. Emmel, CNM Accompanied By: significant other Discharge Method: Ambulatory Condition: Stable FOLLOW UP INFORMATION Follow Up With: [facility] Follow Up On: As Scheduled Follow Up Phone Number: [facility] - GENERAL INSTR-CALL PROVIDER IF: Contractions: Contractions or cramps become more frequent than 8 in one hour or 4 in 20 minutes; Regular painful contractions every 5 minutes or less for one hour. Time your contractions from the beginning of one to the beginning of the next Pressure: Pressure in your vagina or lower abdomen that may feel like the baby is pushing down Period Like Cramps: Period-like cramps or low dull backache that may come and go Cramps/Diarrhea: Abdominal cramps that may be accompanied by diarrhea Gush of Fluid/Blood: Gush of fluid or blood from your vagina (it is normal to have spotting after vaginal exam or intercourse) Vaginal Discharge: Change in the type or amount of vaginal discharge Decreased Movement: Your baby is not moving as much as usual- 4 movements in 1 hour after drinking and resting on side Temperature: Temperature greater than 100.0(F) orally
--- NOTE | 2016-05-22 10:28 | L&D Discharge Summary ---
OB Discharge Summary Datetime Report Generated by CPN: 05/22/2016 10:28 DISCHARGE DIAGNOSIS Diagnosis/Symptoms: Decreased Movement; Reassuring Surveillance - Annotate Details Diagnoses/Symptoms Other: IUP @ 37.0 weeks, BPP 8/10 (Annotations: Data stored by [facility] on behalf of user) Treatment/Procedures Other: Keflex 1000 mg given po Gestation: 37.0 Number of Babies in Womb: 1 Parity: 1 DIET/ACTIVITY/RESTRICTIONS Diet: Regular Activity: Normal Activity TEACHING/INSTRUCTIONS/REFERRALS Instructions Given To: patient and significant other Instructions Understood: Patient Verbalized Understanding; Support Person Verbalized Understanding Referrals: None Educational Materials- Other: kick counts care notes reviewed with patient, patient verbalized understanding DISCHARGE INFORMATION Discharged AMA: No Discharge Date/Time: 05/17/2016 14:50 Discharged To: Home Discharge Provider Name: A. Emmel, CNM Accompanied By: significant other Discharge Method: Ambulatory Condition: Stable FOLLOW UP INFORMATION Follow Up With: [facility] Follow Up On: As Scheduled Follow Up Phone Number: [facility] - GENERAL INSTR-CALL PROVIDER IF: Contractions: Contractions or cramps become more frequent than 8 in one hour or 4 in 20 minutes; Regular painful contractions every 5 minutes or less for one hour. Time your contractions from the beginning of one to the beginning of the next Pressure: Pressure in your vagina or lower abdomen that may feel like the baby is pushing down Period Like Cramps: Period-like cramps or low dull backache that may come and go Cramps/Diarrhea: Abdominal cramps that may be accompanied by diarrhea Gush of Fluid/Blood: Gush of fluid or blood from your vagina (it is normal to have spotting after vaginal exam or intercourse) Vaginal Discharge: Change in the type or amount of vaginal discharge Decreased Movement: Your baby is not moving as much as usual- 4 movements in 1 hour after drinking and resting on side Temperature: Temperature greater than 100.0(F) orally
== END 2016-05-17 14:50 | disposition home or self-care (01) ==
LOC: LC 10:59
PROVIDERS: ATTEND Obstetrics & Gynecology
PROC: 4A1HXCZ Monitoring of Products of Conception, Cardiac Rate, External Approach (ICD-10-PCS; principal; 2016-05-17)
DX: Z34.93 Encounter for supervision of normal pregnancy, unspecified, third trimester (principal); Z3A.37 37 weeks gestation of pregnancy
CPT/HCPCS: 59025; 76819